=== PATIENT | female | born 1980 | race Two or more races ===

== ENCOUNTER 2019-07-29 17:52 | Emergency (ER) | payer MEDICARE, MEDICAID ==
--- NOTE | 2019-07-29 18:13 | ED ---
HPI Chest Pain - HPI Summary HPI Summary: 39 year old F brought in by ambulance to [facility] accompanied by mother and sister complains of chest pain since earlier today. Patient reports headache. The patient rates the pain 5/10 in severity. Symptoms aggravated by heat. Symptoms alleviated by aspirin 325 mg given by EMS. Per triage note, patient was given aspiring 325 mg by EMS. Sister states that patient has had similar episodes before when she gets overheated. Per sister, patient was outside today being active with patient's worker. Per sister, patient's worker stated that patient was complaining of chest pain, becoming less responsive, starting to gurgle earlier today. Mother states that patient has been seen by the neurologist and abrasive wheel molder in the past which were fine. - History of Current Complaint Time Seen by Provider: 07/29/19 17:59 Hx Obtained From: Patient, Family/[employer]forming [employer] Manager - sister and mother Onset/Duration: Started Hours Ago, Still Present Timing: Constant Current Severity: Moderate Pain Intensity: 5 Pain Scale Used: 0-10 Numeric Aggravating Factor(s): Other: - heat Alleviating Factor(s): Other: - aspirin 325 mg Associated Signs and Symptoms: Positive: Headaches - Allergy/Home Medications Allergies/Adverse Reactions: Allergies Allergy/AdvReac Type Severity Reaction Status Date / Time codeine Allergy Mild Rash Verified 07/29/19 18:03 doxycycline Allergy Mild Rash Verified 07/29/19 18:03 BEES Allergy ANAPHYLACTI Uncoded 07/29/19 18:03 C THYROID MEDICATION Allergy BLOTCHY Uncoded 07/29/19 18:03 SKIN, DIFFICULT BREATHING Home Medications: Home Medications Aspirin EC TAB* [Ecotrin EC Low Dose 81 MG*] 81 mg PO DAILY 07/29/19 [History Confirmed 07/29/19] Cholecalciferol TAB* [Vitamin D TAB*] 2,000 units PO DAILY 07/29/19 [History Confirmed 07/29/19] Digoxin TAB* [Lanoxin TAB*] 0.25 mg PO DAILY 07/29/19 [History Confirmed ] EPINEPHrine [Epipen] 0.3 mg INJ ONCE PRN 07/29/19 [History Confirmed 07/29/19] Ketoconazole 2 % CREAM (NF) [Nizoral 2% CREAM (NF)] 1 applic TOPICAL DAILY PRN 07/29/19 [History Confirmed 07/29/19] Levothyroxine TAB* [Synthroid TAB*] 50 mcg PO DAILY 07/29/19 [History Confirmed 07/29/19] Meloxicam(NF) [Mobic(NF)] 15 mg PO DAILY 07/29/19 [History Confirmed 07/29/19] Omeprazole (Nf) [Prilosec (NF)] 40 mg PO QAM 07/29/19 [History Confirmed ] PMH/Surg Hx/FS Hx/Imm Hx Endocrine/Hematology History: Reports: Hx Diabetes - TYPE 2, Hx Thyroid Disease Cardiovascular History: Reports: Other Cardiovascular Problems/Disorders - ON DIGOXIN-FOR CHEST PAIN,DIZZY, LIGHT HEAD GI History: Reports: Hx Hiatal Hernia Denies: Other GI Disorders History: Reports: Other Problems/Disorders - OCCASIONAL UTI Denies: Hx Dialysis, Hx Kidney Stones, Hx Renal Disease Sensory History: Denies: Hx Contacts or Glasses, Hx Hearing Aid Opthamlomology History: Denies: Hx Contacts or Glasses Neurological History: Reports: Other Neuro Impairments/Disorders - DOWNS SYNDROME - Surgical History Surgery Procedure, Year, and Place: 1981 OPEN HEART SURGERY- [facility], [place]. HERNIA SURGERY, [facility] [place]. BILATERAL MYRINGOTOMY WITH TUBE INSERTION Hx Anesthesia Reactions: No Infectious Disease History: Unable to Obtain/Confirm Infectious Disease History: Denies: Traveled Outside the [place] in Last 30 Days - Family History Known Family History: Negative: Cardiac Disease, Hypertension, Diabetes - Social History Alcohol Use: None Hx Substance Use: No Substance Use Type: Reports: None Hx Tobacco Use: No Smoking Status (MU): Never Smoked Tobacco Review of Systems Positive: Chest Pain Positive: Headache All Other Systems Reviewed And Are Negative: Yes Physical Exam - Summary Physical Exam Summary: Appearance: The patient is well-nourished in no acute distress and in no acute pain. Patient's cheeks are red Skin: The skin is warm and dry, and skin color reflects adequate perfusion. HEENT: The head is normocephalic and atraumatic. The pupils are equal and reactive. The conjunctivae are clear and without drainage. Nares are patent and without drainage. Mouth reveals moist mucous membranes, and the throat is without erythema and exudate. The external ears are intact. The ear canals are patent and without drainage. The tympanic membranes are intact. Neck: The neck is supple with full range of motion and non-tender. There are no carotid bruits. There is no neck vein distension. Respiratory: Chest is non-tender. Lungs are clear to auscultation and breath sounds are symmetrical and equal. Cardiovascular: Heart is regular rate and rhythm. There is no murmur or rub auscultated. There is no peripheral edema and pulses are symmetrical and equal. Abdomen: The abdomen is soft and non-tender. There are normal bowel sounds heard in all four quadrants and there is no organomegaly palpated. Musculoskeletal: There is no back tenderness noted. Extremities are non-tender with full range of motion. There is good capillary refill. There is no peripheral edema or calf tenderness elicited. Neurological: Patient is alert and oriented to person, place and time. The patient has symmetrical motor strength in all four extremities. Cranial nerves are grossly intact. Deep tendon reflexes are symmetrical and equal in all four extremities. Psychiatric: The patient has an appropriate affect and does not exhibit any anxiety or depression. Triage Information Reviewed: Yes Vital Signs On Initial Exam: Initial Vitals Temp Pulse Resp BP Pulse Ox 96.8 F 66 22 125/78 95 07/29/19 17:53 07/29/19 17:53 07/29/19 17:53 07/29/19 17:53 07/29/19 17:53 Vital Signs Reviewed: Yes Diagnostics - Vital Signs Vital Signs Temp Pulse Resp BP Pulse Ox 07/29/19 17:53 96.8 F 66 22 125/78 95 - Laboratory Result Diagrams: 07/29/19 18:54 07/29/19 18:54 Lab Statement: Any lab studies that have been ordered have been reviewed, and results considered in the medical decision making process. - EKG 1756 Cardiac Rate: NL - 68 BPM EKG Rhythm: Sinus Rhythm EKG Comparison: No Significant Change - 02/21/16 Summary of EKG Findings: sinus rhythm 68 BPM, RBBB, left anterior fasicular block, no change from 02/21/16 Re-Evaluation - Re-Evaluation First Eval Re-Evaluation Time: 19:57 Chest Pain Course/Dx - Course Course Of Treatment: Margaret was out with a worker today which is unusual for her. She complained of a headache and some chest pain and looked flushed so she was brought to the emergency department. Here she denies the headache and chest pain although her cheeks are flushed. She is nontoxic in appearance and her vitals are stable. Her mother reports that she's had episodes like this before from overexertion and getting overheated. Is not a particularly hot day. Labs were obtained and were unremarkable although the sample was hemolyzed. She got IV fluid here and felt completely improved. Her family wanted to take her home and felt that this was just another one of the episodes that she has. - Diagnoses Provider Diagnoses: Chest pain Discharge ED - Sign-Out/Discharge Documenting (check all that apply): Patient Departure - Discharge Patient Received Moderate/Deep Sedation with Procedure: No - Discharge Plan Condition: Stable Disposition: HOME Patient Education Materials: Chest Pain (ED) Referrals: Cassius Lee MD [Primary Care Provider] - 2 Days Additional Instructions: Follow up with your primary care provider in the next 2-3 days. RETURN TO EMERGENCY DEPARTMENT FOR NEW OR WORSENING SYMPTOMS. - Billing Disposition and Condition Condition: STABLE Disposition: Home - Attestation Statements Document Initiated by Jameele: Yes Documenting Scribe: Elena Stone Provider For Whom Lauro is Documenting (Include Credential): Hussain Ashford MD Scribe Attestation: IElena, scribed for Hussain Ashford MD on 07/29/19 at 7123. Scribe Documentation Reviewed: Yes Provider Attestation: The documentation as recorded by the Elena casillas accurately reflects the service I personally performed and the decisions made by me, Hussain Ashford MD Status of Scribe Document: Viewed
[2019-07-29] MEDS ORDERED: NS 0.9% 1000 ML** 1,000 ML IV ONE (18:29)
[2019-07-29 19:04] LABS: ABS Eosinophils 0.4 10^3/ul (0-0.6); ABS Lymphocytes 3.6 10^3/ul (1.0-4.8); ABS Monocytes 0.9 10^3/ul (0-0.8); ABS Neutrophils 7.3 10^3/ul (1.5-7.7); Hematocrit 47 % (35-47); Hemoglobin 16.2 g/dL (12.0-16.0); Lymphocyte % 29.5 %; Mean Corpuscular HGB Conc 34 g/dL (31-36); Mean Corpuscular Hemoglobin 32 pg (27-31); Mean Corpuscular Volume 94 fL (80-97); Mean Platelet Volume 7.7 fL (7.4-10.4); Nucleated Red Blood Cells % 0.1; Platelet Count 357 10^3/uL (150-450); Red Blood Count 5.02 10^6 /uL (3.70-4.87); Red Cell Distribution Width 16 % (10-15); White Blood Count 12.3 10^3/uL (3.5-10.8)
[2019-07-29 19:23] LABS: ALT 30 U/L (7-52); Alkaline Phosphatase 66 U/L (34-104); BUN/Creatinine Ratio 12.4 (8-20); Blood Urea Nitrogen 11 mg/dL (6-24); CO2 Carbon Dioxide 27 mmol/L (22-32); Calcium 9.2 mg/dL (8.6-10.3); Chloride 102 mmol/L (101-111); EGFR African American 85.9 (>60); Glucose 118 mg/dL (70-100); Sodium 137 mmol/L (135-145)
[2019-07-29 19:26] LABS: Urine Appearance Clear; Urine Bilirubin Negative (Negative); Urine Blood Negative (Negative); Urine Color Colorless; Urine Glucose Negative (Negative); Urine Ketones Negative (Negative); Urine Nitrite Negative (Negative); Urine Protein Negative (Negative); Urine Specific Gravity 1.002 (1.010-1.030); Urine Urobilinogen Negative (Negative)
[2019-07-29 19:26] LABS: Anion Gap 8 mmol/L (2-11)
[2019-07-29 20:18] VITALS: BP 127/68
== END 2019-07-29 20:18 | disposition home or self-care (01) ==
LOC: ED 17:52
DX: R07.9 Chest pain, unspecified (principal); E11.9 Type 2 diabetes mellitus without complications; E07.9 Disorder of thyroid, unspecified; Z79.82 Long term (current) use of aspirin; Z79.899 Other long term (current) drug therapy; Z88.1 Allergy status to other antibiotic agents; Z88.5 Allergy status to narcotic agent; Z88.8 Allergy status to other drugs, medicaments and biological substances
CPT/HCPCS: 36415; 80053; 81003; 83605; 84484; 85025; 93005; 96360; 96361; 99283

== ENCOUNTER 2019-12-06 17:08 | Emergency (ER) | payer MEDICARE, MEDICAID ==
--- NOTE | 2019-12-06 17:42 | ED ---
Seizure - HPI Summary HPI Summary: Per EMS patient with history of Down syndrome complains of possible seizure. Patient lives at [facility], had an episode today where her eyes rolled back, her right arm started shaking and she was unresponsive for "a couple minutes". Episode was witnessed by staff. Per EMS patient seemed postictal at first, but recovered awareness quickly. Patient has history of similar episodes a couple times a year when "she feels hot". Patient has been evaluated in 2019 by neurology with no evidence of seizure disorder. Patient not taking any medications. Patient has no complaints at this time. Mother is concerned would like patient checked out. Patient denies fever, cough, sore throat, CP, SOB, suspicious D, no break in November, change in BM, headache. Medical history is hypothyroid, anemia, Down syndrome, atrial septal defect at . - History Of Current Complaint Chief Complaint: EDSeizure Time Seen by Provider: 12/06/19 17:28 Hx Obtained From: Patient, Family/Retail Personal Banker Onset/Duration: Sudden Onset, Lasting Minutes Severity Of Seizure: Self-Limited Location Of Seizure: Partial Extremities Aggravating Factor(s): Nothing Alleviating Factor(s): Spontaneous Resolution Associated Signs And Symptoms: Negative - Allergies/Home Medications Allergies/Adverse Reactions: Allergies Allergy/AdvReac Type Severity Reaction Status Date / Time codeine Allergy Mild Rash Verified 12/06/19 17:25 doxycycline Allergy Mild Rash Verified 12/06/19 17:25 BEES Allergy ANAPHYLACTI Uncoded 12/06/19 17:25 C THYROID MEDICATION Allergy BLOTCHY Uncoded 12/06/19 17:25 SKIN, DIFFICULT BREATHING Home Medications: Home Medications Ammonium Lactate 12% [Lac-Hydrin 12 %] 12 % TOPICAL BID PRN 12/06/19 [History Confirmed 12/06/19] Docusate CAP* [Colace Cap*] 100 mg PO DAILY PRN 12/06/19 [History Confirmed ] PMH/Surg Hx/FS Hx/Imm Hx Endocrine/Hematology History: Reports: Hx Diabetes - TYPE 2, Hx Thyroid Disease Cardiovascular History: Reports: Other Cardiovascular Problems/Disorders - ON DIGOXIN-FOR CHEST PAIN,DIZZY, LIGHT HEAD GI History: Reports: Hx Hiatal Hernia Denies: Other GI Disorders History: Reports: Other Problems/Disorders - OCCASIONAL UTI Denies: Hx Dialysis, Hx Kidney Stones, Hx Renal Disease Sensory History: Denies: Hx Contacts or Glasses, Hx Hearing Aid Opthamlomology History: Denies: Hx Contacts or Glasses EENT History: Denies: Hx Deafness Neurological History: Reports: Other Neuro Impairments/Disorders - DOWNS SYNDROME - Surgical History Surgery Procedure, Year, and Place: 1981 OPEN HEART SURGERY- [facility], [place]. HERNIA SURGERY, [facility]. BILATERAL MYRINGOTOMY WITH TUBE INSERTION Hx Anesthesia Reactions: No Infectious Disease History: No Infectious Disease History: Denies: Traveled Outside the [place] in Last 30 Days - Family History Known Family History: Negative: Cardiac Disease, Hypertension, Diabetes - Social History Alcohol Use: None Hx Substance Use: No Substance Use Type: Reports: None Hx Tobacco Use: No Smoking Status (MU): Never Smoked Tobacco Review of Systems Constitutional: Negative Eyes: Negative ENT: Negative Cardiovascular: Negative Respiratory: Negative Gastrointestinal: Negative Genitourinary: Negative Musculoskeletal: Negative Skin: Negative Neurological: Other Psychological: Normal All Other Systems Reviewed And Are Negative: Yes Physical Exam - Summary Physical Exam Summary: Patient alert and interactive. No apparent distress. No visible evidence of trauma. Triage Information Reviewed: Yes Vital Signs On Initial Exam: Initial Vitals Temp Pulse Resp BP Pulse Ox 97.6 F 94 18 154/83 94 12/06/19 17:21 12/06/19 17:21 12/06/19 17:21 12/06/19 17:21 12/06/19 17:21 Vital Signs Reviewed: Yes Appearance: Positive: Well-Appearing Skin: Positive: Warm Head/Face: Positive: Normal Head/Face Inspection Eyes: Positive: Normal ENT: Positive: Normal ENT inspection Dental: Negative: Dental Fracture @, Bleeding Neck: Positive: Supple Respiratory/Lung Sounds: Positive: Clear to Auscultation Cardiovascular: Positive: Normal Abdomen Description: Positive: Nontender Musculoskeletal: Positive: Normal Neurological: Positive: Normal Psychiatric: Positive: Normal AVPU Assessment: Alert - [place] Coma Scale Best Eye Response: 4 - Spontaneous Best Motor Response: 6 - Obeys Commands Best Verbal Response: 5 - Oriented Coma Scale Total: 15 Procedures - Sedation Patient Received Moderate/Deep Sedation with Procedure: No Diagnostics - Vital Signs Vital Signs Temp Pulse Resp BP Pulse Ox 12/06/19 17:21 97.6 F 94 18 154/83 94 - Laboratory Result Diagrams: 12/06/19 18:03 12/06/19 18:03 Lab Statement: Any lab studies that have been ordered have been reviewed, and results considered in the medical decision making process. Course/Dx - Course Course Of Treatment: Per EMS patient with history of Down syndrome complains of possible seizure. Patient lives at [facility], had an episode today where her eyes rolled back, her right arm started shaking and she was unresponsive for "a couple minutes". Episode was witnessed by staff. Per EMS patient seemed postictal at first, but recovered awareness quickly. Patient has history of similar episodes a couple times a year when "she feels hot". Patient has been evaluated in 2019 by neurology with no evidence of seizure disorder. Patient not taking any medications. Patient has no complaints at this time. Mother is concerned would like patient checked out. Patient denies fever, cough, sore throat, CP, SOB, suspicious D, no break in November, change in BM, headache. Medical history is hypothyroid, anemia, Down syndrome, atrial septal defect at . Vital signs within normal limits. EKG sinus rhythm, heart rate of 61, RBBB, same as prior. - Diagnoses Provider Diagnoses: AMS (altered mental status) Discharge ED - Sign-Out/Discharge Documenting (check all that apply): Patient Departure - Discharge Plan Condition: Stable Disposition: HOME Patient Education Materials: Altered Mental Status (ED) Referrals: Cassius Lee MD [Primary Care Provider] - Raul Lewis MD [Medical Doctor] - Additional Instructions: Follow-up with your neurologist for further evaluation of possible seizure. Return to the ED for any new or worsening symptoms. - Billing Disposition and Condition Condition: STABLE Disposition: Home
[2019-12-06 18:30] LABS: Hematocrit 46 % (35-47); Hemoglobin 15.5 g/dL (12.0-16.0); Mean Corpuscular HGB Conc 34 g/dL (31-36); Mean Corpuscular Hemoglobin 32 pg (27-31); Mean Corpuscular Volume 94 fL (80-97); Red Blood Count 4.86 10^6 /uL (3.70-4.87); Red Cell Distribution Width 17 % (10-15); White Blood Count 14.9 10^3/uL (3.5-10.8)
[2019-12-06 18:31] LABS: ALT 34 U/L (7-52); AST 27 U/L (13-39); Albumin 4.1 g/dL (3.2-5.2); Alkaline Phosphatase 73 U/L (34-104); Anion Gap 8 mmol/L (2-11); BUN/Creatinine Ratio 14.5 (8-20); Blood Urea Nitrogen 11 mg/dL (6-24); C Reactive Protein 12.73 mg/L (<8.01); CO2 Carbon Dioxide 26 mmol/L (22-32); Calcium 9.5 mg/dL (8.6-10.3); Chloride 101 mmol/L (101-111); EGFR African American 103.1 (>60); EGFR Non-African American 85.2 (>60); Globulin 4.1 g/dL (2-4); Glucose 100 mg/dL (70-100); Magnesium 2.4 mg/dL (1.9-2.7); Potassium 4.1 mmol/L (3.5-5.0); Sodium 135 mmol/L (135-145); Total Protein 8.2 g/dL (6.4-8.9)
[2019-12-06 18:38] LABS: HCG Pregnancy < 0.60 mIU/mL
[2019-12-06 18:55] LABS: ABS Basophils 0.3 10^3/ul (0-0.2); ABS Eosinophils 0.3 10^3/ul (0-0.6); ABS Lymphocytes 4.1 10^3/ul (1.0-4.8); ABS Monocytes 1.1 10^3/ul (0-0.8); ABS Neutrophils 9.1 10^3/ul (1.5-7.7); Eosinophil % 2.2 %; Lymphocyte % 27.3 %; Nucleated Red Blood Cells % 0.1; Platelet Count 330 10^3/uL (150-450)
[2019-12-06 19:33] VITALS: BP 126/70
== END 2019-12-06 19:32 | disposition home or self-care (01) ==
LOC: ED 17:08
DX: R41.82 Altered mental status, unspecified (principal); Q90.9 Down syndrome, unspecified; E11.9 Type 2 diabetes mellitus without complications; E07.9 Disorder of thyroid, unspecified; Z79.899 Other long term (current) drug therapy; Z88.5 Allergy status to narcotic agent; Z88.1 Allergy status to other antibiotic agents; Z88.8 Allergy status to other drugs, medicaments and biological substances
CPT/HCPCS: 36415; 80053; 83735; 84443; 84702; 85025; 86140; 93005; 99282